=== PATIENT | male | born 1975 | race Hispanic/Latino ===

== ENCOUNTER 2017-02-09 18:46 | Emergency (ER) | payer SELFPAY ==
[~2017-02-09] VITALS: Ht 167.6 cm; Wt 74.8 kg
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
[2017-02-09] MEDS ORDERED: TETANUS & DIPHTHERIA TOX,ADULT 0.5 ML (TENIVAC) IM ONE (19:15)
[2017-02-09] MEDS ORDERED: fentaNYL INJECTION 100 MCG/2 ML AMP IM ONE (19:15)
[2017-02-09] MEDS ORDERED: ONDANSETRON 4 MG/2 ML (SDV) Z0FRAN IM ONE (19:15)
[2017-02-09] MEDS ORDERED: LIDOCAINE/EPI 2% 1:100,00 (XYLOCAINE) 20 ML VIAL INJ ONE (19:15)
[2017-02-09 20:01] VITALS: BP 136/89
== END 2017-02-09 20:01 | disposition home or self-care (01) ==
LOC: ER 18:51
DX: S01.01XA Laceration without foreign body of scalp, initial encounter (principal); Z23 Encounter for immunization; Y08.89XA Assault by other specified means, initial encounter
CPT/HCPCS: 12001; 90714

== ENCOUNTER 2017-02-14 09:23 | Emergency (ER) | payer OTHER ==
[~2017-02-14] VITALS: Ht 175.3 cm; Wt 95.3 kg
[2017-02-14 09:31] VITALS: BP 132/70
== END 2017-02-14 09:32 | disposition home or self-care (01) ==
LOC: EDUNIT# 09:23 → ER 09:26
DX: S01.01XD Laceration without foreign body of scalp, subsequent encounter (principal); X58.XXXD Exposure to other specified factors, subsequent encounter